=== PATIENT | male | born 1950 | race Caucasian/White ===

== ENCOUNTER 2019-07-27 13:55 | Emergency (ER) | payer MEDICARE, SELFPAY ==
[2019-07-27] VITALS (7 sets, daily range): BP systolic 129–164; BP diastolic 63–99; PULSE 53–64; RESP 14–18; TEMP 36.8; O2SAT 99–100
--- NOTE | ~2019-07-27 | CT_ITS ---
EXAMINATION: CT IAC/mastoids BI wo con DATE: 07/27/2019 15:10 INDICATION: Left ear pain and discharge. Dizziness. TECHNIQUE: Computed tomography (CT) of the temporal bones was performed without intravenous contrast. Automated exposure control and iterative reconstruction technique were employed. The dose-length pro duct was 377.09 mGy-cm. COMPARISON: None FINDINGS: RIGHT TEMPORAL BONE: The internal auditory canal, cochlea, vestibule, semicircular canals, vestibular aqueduct, carotid ca nal, jugular bulb, facial nerve course, ossicles, Prussak space, scutum, and tympanic membrane percen t are normal. There is trace fluid in the right mastoid air cells. Soft tissue lining the external au ditory canal is likely cerumen. LEFT TEMPORAL BONE: The internal auditory canal, cochlea, vestibule, semicircular canals, vestibular aqueduct, carotid ca nal, and jugular bulb are normal. There is a large left mastoid effusion. There is an effusion of the tympanic cavity. There are no erosions of the ossicles. There are areas of dehiscence of tegmen tymp ani and tegmen mastoideum. There is material in Prussak space. Scutum is sharp. There is thickening o f the tympanic membrane. The external auditory canal is normal. There is no radiopaque foreign body. IMPRESSION: 1. Left otomastoid effusion. 2. Normal right temporal bone. Reviewed, dictated and finalized at location A.
--- NOTE | 2019-07-27 13:59 | ECG_ITS ---
Measurements Intervals [place] Rate: 58 P: 53 IN: 168 QRS: -24 QRSD: 105 T: -14 QT: 392 QTc: 388 Interpretive Statements SINUS BRADYCARDIA BASELINE WANDER- I, II, AVR, AVL ,AVF BORDERLINE ECG Electronically Signed On 07-27-2019 14:54:08 CDT by Julio Ferrara D.O.
--- NOTE | 2019-07-27 14:32 | ED.DIZZY ---
HPI - Dizziness General Chief Complaint: Dizziness Stated Complaint: dizziness Time Seen by Provider: 07/27/19 14:32 History of Present Illness HPI Narrative: Dizziness and difficulty walking since this morning. The dizziness is primarly on standing. Feels more like vertigo that near syncope. Associated with feeling of weakness/unsteadiness in his legs. He reports a large amount of drainage from the left ear, which has a typanostomy tube in place. No nausea, vomiting, fever, NAVARRO. Related Data Allergies Allergy/AdvReac Type Severity Reaction Status Date / Time PAPER TAPE Allergy Mild Uncoded 11/09/14 10:34 TETANUS & DIPHTHERIA Allergy Mild Uncoded 11/09/14 10:34 TOX,ADULT Review of Systems Review of Systems: All systems reviewed & are unremarkable except as noted in HPI and below Constitutional: Constitutional: Denies fever(s) Eyes: Eyes: Denies change in vision ENT: Denies sore throat Cardiovascular: Cardiovascular: Denies chest pain Respiratory: Respiratory: Denies dyspnea Gastrointestinal: Gastrointestinal: Denies nausea and Denies vomiting Musculoskeletal: Musculoskeletal: Denies back pain Neurologic: Denies confusion, Reports dizziness, Denies syncope, Denies focal weakness and Denies numbness PMFSH Surgical History Surgical History (Updated 08/01/19 @ 08:51 by Giuliano Bui MD) H/O tympanostomy Social History Social History (Updated 08/01/19 @ 08:52 by Giuliano Bui MD) Smoking status: Never smoker Exam Const: General: healthy appearing, no acute distress and alert Nutritional Appearance: obese Orientation/consciousness: patient oriented x3 HENMT: Other: On initially exam he had a metallic appearing object in the left external ear. On repeat exam this was gone and the TM was seen with tube in place. Suspect that it was a fluid bubble. There was a large volume of thick discharge. Eyes: Pupils: Equal, round and reactive pupils present EOM: EOMs intact bilaterally Neck: Neck: normal visual inspection and no lymphadenopathy Chest: Chest palpation & inspection: no tenderness Resp: Effort & Inspection: normal respiratory effort Auscultation: clear to auscultation bilaterally, no rales, no rhonchi and no wheezes Cardio: Jugular venous distension: no JVD Rate: regular rate Rhythm: regular rhythm Heart sounds: no murmurs GI: GI Palp: Yes Soft to palpation and No Tenderness to palpation present (GI) Skin: General skin exam: normal color Neuro: General: patient oriented x3, moves all extremities and CN's II-XI intact bilaterally Cranial nerves: Yes Nystagmus present Speech: normal speech Extrem: General: no edema Psych: Appearance: well kempt Affect: normal affect Course Vital Signs Vital signs: Vital Signs Temperature 36.8 C 07/27/19 14:00 Pulse Rate 63 07/27/19 14:00 Respiratory Rate 17 07/27/19 14:00 Blood Pressure 151/88 H 07/27/19 14:00 Pulse Oximetry 99 07/27/19 14:00 Temperature 36.8 C 07/27/19 14:00 Pulse Rate 55 L 07/27/19 19:23 Respiratory Rate 14 07/27/19 19:23 Blood Pressure 164/63 H 07/27/19 19:23 Pulse Oximetry 100 07/27/19 19:23 MDM - Dizziness MDM Narrative Medical decision making narrative: He seems to be having vertigo although slightly atypical. Likely related to the large amount of drainage. Could be infectious. Feeling better and ambulating with stable gait after treatment. Medical Records Attestation: I reviewed the patient's medical records. Lab Data Attestation: I reviewed the patient's lab results. Result diagrams: 07/27/19 14:23 07/27/19 14:23 Labs: Lab Results 07/27/19 07/27/19 Range/Units 14:23 14:23 WBC 5.7 (4.5-10.0) K/mm3 RBC 4.65 (4.6-6.20) M/mm3 Hgb 13.6 L (14.0-18.0) g/dL Hct 41.8 L (42.0-52.0) % MCV 89.9 (80-100) fl MCH 29.2 (26-34) pg MCHC 32.5 (32-36) g/dl RDW 13.3 (11.5-14.5) % Plt Count 215 (150-375) k/mm3 M
[2019-07-27 14:35] LABS: Basophils Percent Auto 0.5 % (0.2-1.2); Eosinophils Absolute Auto 0.2 K/mm3 (0-0.3); Hematocrit 41.8 % (42.0-52.0); Hemoglobin 13.6 g/dL (14.0-18.0); Immature Granulocyte Absolute 0.02 K/mm3 (0.00-0.031); Immature Granulocyte Percent A 0.4 % (0-0.5); Lymphocytes Absolute Auto 1.28 K/mm3 (0.9-3.2); Lymphocytes Percent Auto 22.4 % (18.3-44.2); Mean Corpuscular HGB Conc 32.5 g/dl (32-36); Mean Corpuscular Hemoglobin 29.2 pg (26-34); Mean Corpuscular Volume 89.9 fl (80-100); Monocytes Absolute Auto 0.5 K/mm3 (0.1-0.6); Monocytes Percent Auto 8.9 % (2.6-8.5); Neutrophils Absolute Auto 3.7 K/mm3 (1.3-6.7); Neutrophils Percent Auto 64.8 % (45.5-73.1); Platelet Count Result 215 k/mm3 (150-375); Red Blood Count 4.65 M/mm3 (4.6-6.20); Red Cell Distribution Width 13.3 % (11.5-14.5); White Blood Count 5.7 K/mm3 (4.5-10.0)
[2019-07-27 14:46] LABS: Blood Urea Nitrogen 15 mg/dL (9-20); Calcium 9.1 mg/dL (8.4-10.2); Carbon Dioxide 24 mmol/L (22-30); Chloride 106 mmol/L (98-107); Estimated Glomerular Filt Rate > 60; Glucose 94 mg/dL (75-110); Potassium 4.7 mmol/L (3.4-5.0); Sodium 137 mmol/L (137-145)
[2019-07-27] MEDS: AMOXICILLIN/CLAVULANATE K 875-125 MG TAB 1 TABLET PO (15:41)
[2019-07-27] MEDS: MECLIZINE HCL 25 MG TABLET PO (15:58)
[2019-07-27] MEDS: SODIUM CHLORIDE 0.9% IV 1,000 ML 999 ML IV CONT (17:44)
--- NOTE | 2019-07-27 18:57 | PC.NURSE ---
Patient ambulated up and down [place] to bathroom without difficultly and in no distress at this time. EDP aware.
== END 2019-07-27 19:25 | disposition home or self-care (01) ==
PROVIDERS: Emergency Provider Emergency Medicine
DX: R42 Dizziness and giddiness (principal); H66.90 Otitis media, unspecified, unspecified ear; R00.1 Bradycardia, unspecified
CPT/HCPCS: 36415; 70480; 80048; 85025; 93005; 96360; 99284; A9270; J7030

== ENCOUNTER 2022-01-17 09:31 | Emergency (ER) | payer MEDICARE, SELFPAY ==
[2022-01-17] VITALS (7 sets, daily range): BP systolic 147–174; BP diastolic 59–88; PULSE 59–78; RESP 18–22; TEMP 36.6; O2SAT 96–98
--- NOTE | ~2022-01-17 | XR_ITS ---
EXAMINATION: XR chest 2V DATE: 01/17/2022 10:15 INDICATION: One week of productive cough TECHNIQUE: frontal and lateral views of the chest were obtained. COMPARISON: Chest radiograph dated 02/23/12 FINDINGS: Unchanged chronic elevation the right hemidiaphragm with relatively low delineated bandlike opacities at the posterior medial right lung base and would favor atelectasis/scarring over pneumonia. Additio nal minimal linear discoid atelectasis at the left costophrenic angle. No other airspace opacities, p ulmonary edema, pleural effusion or pneumothorax. The cardiomediastinal silhouette is normal. Mild th oracic spondylosis. Cholecystectomy clips in the right upper quadrant. IMPRESSION: 1. Chronic elevation the right hemidiaphragm with bandlike opacities at the right lung base and thin linear opacity lateral left lung base and would favor atelectasis/scarring over pneumonia. Reviewed, dictated and finalized at location A. DESK SPECIALIST IMPRESSION: 1. Chronic elevation the right hemidiaphragm with bandlike opacities at the rig ht lung base and thin linear opacity lateral left lung base and would favor ate lectasis/scarring over pneumonia.
--- NOTE | ~2022-01-17 | CT_ITS ---
EXAMINATION: CTA chest PE protocol DATE: 01/17/2022 13:30 INDICATION: Chest pain, shortness of breath and elevated d-dimer. TECHNIQUE: Computed tomography (CT) pulmonary angiogram of the chest was performed with 100 mL Omnipa que-350 intravenous contrast. The patient coughed through the first scan and the imaging was repeated utilizing an additional 100 mL Omnipaque 350 intravenous contrast. Additional 3D reconstructions uti lizing coronal maximum intensity projection (MIP) were performed. Automated exposure control and iter ative reconstruction technique were employed. The dose-length product was 1959.60 mGy-cm. COMPARISON: None FINDINGS: Excellent contrast opacification of the pulmonary arteries. There is mild streak artifact from dense contrast in the superior vena cava and right atrium. Mild scattered respiratory motion artifact on th e repeat imaging which decreases sensitivity in the segmental and subsegmental pulmonary arteries of the right middle and basilar right lower lobe. No evident pulmonary embolism. There is atelectasis in the basilar right middle and lower lobes along the chronically elevated right hemidiaphragm. There i s homogeneous parenchymal enhancement of the atelectatic portions of the lung. There are few scattere d small bilateral calcified pulmonary nodules consistent with old granulomatous disease. No pneumonia , pulmonary edema, pleural effusion or pneumothorax. Heart size is normal. No pericardial effusion. T horacic aorta is normal in caliber with no dissection. No pathologically enlarged thoracic lymphadeno cheryl. Cholecystectomy clips at the gallbladder fossa. A couple peripherally calcified heterotopic os sicles near the hepatic flexure of the colon. Visualized abdomen is otherwise unremarkable. Mild thor acic spondylosis. IMPRESSION: 1. No pulmonary embolism or other evident acute cardiopulmonary disease. Sensitivity for pulmonary em bolism decreased in the basilar segmental and subsegmental pulmonary arteries in the right middle and lower lobes due to some motion artifact. 3. Right basilar atelectasis in the middle and lower lobes along the chronically elevated right hemid iaphragm. Reviewed, dictated and finalized at location A. ER EXAMINER IMPRESSION: 1. No pulmonary embolism or other evident acute cardiopulmonary disease. Sensit ivity for pulmonary embolism decreased in the basilar segmental and subsegmenta l pulmonary arteries in the right middle and lower lobes due to some motion art ifact. 3. Right basilar atelectasis in the middle and lower lobes along the chronicall y elevated right hemidiaphragm.
--- NOTE | 2022-01-17 09:40 | ECG_ITS ---
Measurements Intervals [place] Rate: 60 P: 65 [place]: 169 QRS: 2 QRSD: 95 T: 27 QT: 396 QTc: 398 Interpretive Statements SINUS RHYTHM DELAYED PRECORDIAL R/S TRANSITION BORDERLINE ST-T WAVE ABNORMALITY- HIGH LATERAL LEADS BASELINE ARTIFACT- I, II, III, AVL, AVF, V6 BORDERLINE ECG COMPARED TO ECG 07/27/2019 14:12:39 SINUS RHYTHM NOW PRESENT T-WAVE ABNORMALITY NOW PRESENT Electronically Signed On 01-17-2022 10:58:36 ON CALL by Julio Ferrara D.O.
[2022-01-17 09:54] LABS: Basophils Absolute Auto 0.1 K/mm3 (0.0-0.1); Basophils Percent Auto 0.7 % (0.2-1.2); Eosinophils Absolute Auto 0.3 K/mm3 (0-0.3); Eosinophils Percent Auto 3.2 % (0-4.4); Hemoglobin 14.5 g/dL (14.0-18.0); Immature Granulocyte Absolute 0.05 K/mm3 (0.00-0.031); Immature Granulocyte Percent A 0.6 % (0-0.5); Lymphocytes Absolute Auto 2.08 K/mm3 (0.9-3.2); Lymphocytes Percent Auto 24.1 % (18.3-44.2); Mean Corpuscular HGB Conc 32.2 g/dl (32-36); Mean Corpuscular Hemoglobin 29.4 pg (26-34); Mean Corpuscular Volume 91.3 fl (80-100); Mean Platelet Volume 9.7 fl (7.4-10.4); Monocytes Absolute Auto 0.7 K/mm3 (0.1-0.6); Monocytes Percent Auto 7.5 % (2.6-8.5); Neutrophils Absolute Auto 5.5 K/mm3 (1.3-6.7); Neutrophils Percent Auto 63.9 % (45.5-73.1); Platelet Count Result 254 k/mm3 (150-375); Red Blood Count 4.93 M/mm3 (4.6-6.20); Red Cell Distribution Width 14.5 % (11.5-14.5); White Blood Count 8.6 K/mm3 (4.5-10.0)
[2022-01-17 10:06] LABS: Alanine Aminotransferase 22 U/L (6-50); Albumin Level 4.3 g/dL (3.5-5.1); Alkaline Phosphatase 109 U/L (38-126); Anion Gap 10 mmol/L (8-16); Aspartate Amino Transferase 23 U/L (17-59); Bilirubin,Total 0.4 mg/dL (0.2-1.3); Blood Urea Nitrogen 17 mg/dL (9-20); Calcium 8.8 mg/dL (8.4-10.2); Carbon Dioxide 23 mmol/L (22-30); Chloride 103 mmol/L (98-107); Estimated CRCL calculation 107 ml/min; Estimated Glomerular Filt Rate > 60; Glucose 173 mg/dL (65-110); Potassium 4.6 mmol/L (3.4-5.0); Sodium 136 mmol/L (137-145)
--- NOTE | 2022-01-17 11:26 | ED.URI ---
HPI - URI/Sore Throat General Chief Complaint: Shortness of Breath/Dyspnea Stated Complaint: cough x 1 week Time Seen by Provider: 01/17/22 11:13 Source: patient Mode of arrival: ambulatory Limitations: no limitations History of Present Illness HPI Narrative: This is a 71 year old male that presents to the ER a cough ongoing over the last week. Reports he cannot stop coughing. Associated with congestion. Reports chest pain with coughing. Reports intermittent shortness of breath and lightheadedness. Denies fever or lower extremity edema. Related Data Allergies Allergy/AdvReac Type Severity Reaction Status Date / Time adhesive tape Allergy Mild Paper Verified 01/17/22 11:31 Tape=Rash tetanus and diphtheria Allergy Mild Other Verified 01/17/22 11:32 toxoids Review of Systems Review of Systems: CONSTITUTIONAL: Denies fever ENT: Reports rhinorrhea, congestion CARDIOVASCULAR: Reports chest pain. Denies edema. RESPIRATORY: Reports cough and dyspnea. All systems reviewed & are unremarkable except as noted in HPI and below PMFSH Past Medical History Medical History (Updated 01/17/22 @ 15:05 by Apoorva Roland PA-C) History of diabetes mellitus History of hypertension Surgical History Surgical History (Updated 08/01/19 @ 08:51 by Giuliano Bui MD) H/O tympanostomy Social History Social History (Updated 08/01/19 @ 08:52 by Giuliano Bui MD) Smoking status: Never smoker Exam Narrative: GENERAL: Well-appearing, well-nourished, and in no acute distress. HEAD: Normocephalic, atraumatic. EYES: EOMI. ENT: Nares clear, no rhinorrhea or epistaxis. Mucous membranes moist. Oropharynx without tonsillar hypertrophy exudate or other lesions. CHEST: Clear to auscultation. No respiratory distress. No wheezes rales or rhonchi HEART: Regular rate and rhythm. No murmur heard. Normal peripheral pulses. EXTREMITIES: Normal range of motion. No edema. SKIN: Warm, dry, no rash. NEURO: No focal deficits. Alert and oriented x3. PSYCH: Normal mood and affect Course Vital Signs Vital signs: Vital Signs Temperature 97.9 F 01/17/22 09:34 Pulse Rate 59 L 01/17/22 09:34 Respiratory Rate 18 01/17/22 09:34 Blood Pressure 174/88 H 01/17/22 09:34 Pulse Oximetry 98 01/17/22 09:34 Oxygen Delivery Room Air 01/17/22 09:34 Temperature 97.9 F 01/17/22 09:34 Pulse Rate 67 01/17/22 11:51 Respiratory Rate 18 01/17/22 11:51 Blood Pressure 156/80 H 01/17/22 11:51 Pulse Oximetry 98 01/17/22 11:51 Oxygen Delivery Room Air 01/17/22 10:13 MDM - URI/Sore Throat MDM Narrative Medical decision making narrative: Patient presents the emergency department for cold symptoms ongoing over the last week. Reporting intermittent shortness of breath and chest pain with coughing. He is afebrile and nontoxic-appearing. Oxygen saturation is normal on room air. CBC metabolic panel without concerning findings. Influenza, RSV, and COVID screens are negative. EKG without acute ST changes and baseline troponin is negative. D-dimer was elevated, so CTA of the chest was obtained. No PE or evident active cardiopulmonary abnormality. Patient and family updated on case findings. Instructed on further care of viral infection. Will be given prescription for albuterol inhaler as needed. He is to follow-up with primary care provider. He was given warnings to return to the ER Lab Data Attestation: I reviewed the patient's lab results. Result diagrams: 01/17/22 09:41 01/17/22 09:41 Labs: Lab Results 01/17/22 01/17/22 01/17/22 Range/Units 09:41 09:41 09:41 WBC 8.6 (4.5-10.0) K/mm3 RBC 4.93 (4.6-6.20) M/mm3 Hgb 14.5 (14.0-18.0) g/dL Hct 45.0 (42.0-52.0) % MCV 91.3 (80-100) fl MCH 29.4 (26-34) pg MCHC 32.2 (32-36) g/dl RDW 14.5 (11.5-14.5) % Plt Count 254 (150-375) k/mm3 MPV 9.7 (7.4-10.4) fl Immature Gran % (Auto) 0.6
[2022-01-17 11:37] LABS: Hemoglobin A1C 7.1 % (<5.7)
[2022-01-17] MEDS: IPRATROPIUM BR 0.02% INH SOLN 0.5 MG/2.5 ML VIAL INHALATION (11:41)
[2022-01-17] MEDS: ALBUTEROL SULFATE NEB 2.5 MG/3 ML INH 5 MG INHALATION (11:41)
[2022-01-17] MEDS: ACETAMINOPHEN 500 MG TABLET 1000 MG PO (11:48)
[2022-01-17] MEDS: SODIUM CHLORIDE 0.9% IV 500 ML 999 ML IV CONT (11:48)
[2022-01-17 11:50] LABS: Troponin I < 0.012 ng/mL (0.000-0.034)
[2022-01-17 12:05] LABS: Influenza A QL RT-PCR Negative (Negative); Influenza B QL RT-PCR Negative (Negative); RSV RNA, RT-PCR Negative (Negative); SARS-CoV-2 RNA PCR Negative
== END 2022-01-17 15:35 | disposition home or self-care (01) ==
PROVIDERS: Physician Assistant; Emergency Provider Emergency Medicine
DX: B34.9 Viral infection, unspecified (principal); Z20.822 Contact with and (suspected) exposure to COVID-19; E11.9 Type 2 diabetes mellitus without complications; I10 Essential (primary) hypertension; R94.31 Abnormal electrocardiogram [ECG] [EKG]
CPT/HCPCS: 36415; 71046; 71275; 80053; 83036; 84484; 85025; 85380; 87637; 93005; 94640; 96360; 99284; A9270; J7040; Q9967